=== PATIENT | female | born 1955 | race Hispanic/Latino ===

== ENCOUNTER 2016-09-25 01:58 | Emergency (ER) | payer OTHER ==
[~2016-09-25] VITALS: Ht 157.5 cm; Wt 60.8 kg
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
[2016-09-25 02:28] VITALS: BP 146/65
--- NOTE | 2016-09-25 03:57 | RADIOLOGY REPORT ---
EXAMINATION: 1. RIGHT FOOT. 2. RIGHT ANKLE. CLINICAL INFORMATION: Fall. COMPARISON: None. TECHNIQUE: 1. Right foot. 3 views 2. Right ankle. 3 views. FINDINGS: 1. Right foot. Oblique fracture of the mid distal diaphyseal shaft of the fifth metatarsal. This is minimally displaced. Does not involve an articular surface of the bone. No dislocation. 2. Right ankle. No fracture. No dislocation. Ankle mortise is congruent. IMPRESSION: 1. Right foot. Oblique fracture mid distal diaphyseal shaft of fifth metatarsal. 2. Right ankle. Normal.
[2016-09-25] MEDS ORDERED: PERCOCET 5-3251 EACH PO (04:33)
[2016-09-25] MEDS ORDERED: IBUPROFEN400 M1 PO (04:33)
[2016-09-25] MEDS ORDERED: ATORVASTATIN CA20 M1 PO (04:40)
[2016-09-25] MEDS ORDERED: LANTUS SOL100 UNIT/1 (04:41)
[2016-09-25] MEDS ORDERED: HUMALOG KW100 UNIT/1 (04:41)
[2016-09-25] MEDS ORDERED: PAROXETINE HCL40 M1 PO (04:41)
[2016-09-25] MEDS ORDERED: ZOLPIDEM TARTRA10 M1 PO (04:41)
[2016-09-25] MEDS ORDERED: HYDROXYZINE HCL25 M2 PO (04:41)
== END 2016-09-25 04:43 ==
LOC: ERH 01:58
DX: S92.352A Displaced fracture of fifth metatarsal bone, left foot, initial encounter for closed fracture (principal); W19.XXXA Unspecified fall, initial encounter
CPT/HCPCS: 73610-LT; 73630-LT